=== PATIENT | female | born 1965 | race Caucasian/White ===

== ENCOUNTER 2016-05-14 14:12 | Emergency (ER) | payer BC, OTHER ==
[~2016-05-14] VITALS: Ht 172.7 cm; Wt 111.1 kg
[~2016-05-14 14:12] MED LIST: PANT20TA2 PO; SYNT175T PO
[2016-05-14 14:17] VITALS: BP 135/85; PULSE 91; RESP 18; TEMP 98.9; O2SAT 95
--- NOTE | 2016-05-14 14:22 | PD ---
HPI . Possible splinter to left palm Chief Complaint: Foreign Body Time Seen by Provider: 14:22 Travel History International Travel<30 days: No Contact w/Intl Traveler<30days: No Traveled to known affect area: No History of Present Illness HPI 51-year-old female with hypothyroidism and GERD here with complaints of a possible splinter to her left palm. Apparently a week ago she was working with some plywood and thinks she might have sustained some type of injury to her left palm where there was a splinter left in place. She does recall removing a piece of it but is now complaining of pain in the same area. She has tried poking and picking to remove the splinter without any success. She is concerned that it may become infected. She has no other specific complaints. PFSH Past Medical History ?: Not Social History Tobacco Use: No Allergies-Medications (Allergen,Severity, Reaction): Coded Allergies: No Known Allergies (Unverified , 05/14/16) Reported Meds & Prescriptions Reported Meds & Active Scripts Active Reported Pantoprazole (Pantoprazole Sodium) 20 Mg Tab 20 Mg PO BID Synthroid (Levothyroxine Sodium) 175 Mcg Tab 175 Mcg PO DAILY Review of Systems General / Constitutional: No: Fever Eyes: No: Visual changes HENT: No: Headaches Cardiovascular: No: Chest Pain or Discomfort Respiratory: No: Shortness of Breath Gastrointestinal: No: Abdominal Pain Genitourinary: No: Dysuria Musculoskeletal: Positive: Pain (left palm) Skin: No Rash Neurologic: No: Weakness Psychiatric: No: Depression Endocrine: No: Polydipsia Hematologic/Lymphatic: No: Easy Bruising Physical Exam Narrative GENERAL: AAO x 3, no acute distress, Well-nourished, well-developed patient. SKIN: Warm and dry. No visible rashes or bruising. There is a callused area to the left palm distal to the fourth digit. I do not visualize any type of splinter. I do not feel any type of form body. It is tender to touch. HEAD: Normocephalic and atraumatic. EYES: No scleral icterus. No injection or drainage. EOM intact, PERRLA ENT: No nasal drainage noted. Mucous membranes pink. Airway patent. NECK: Supple, trachea midline. No JVD. CARDIOVASCULAR: Regular rate and rhythm without murmurs, gallops, or rubs. RESPIRATORY: Breath sounds equal bilaterally. No accessory muscle use. No rhonchi or rales. GASTROINTESTINAL: Abdomen soft, non-tender, nondistended. EXTREMITIES: No cyanosis or edema. BACK: Nontender without obvious deformity. No CVA tenderness. PSYCH: AAO x 3, normal affect. Data Data Last Documented VS Vital Signs Date Time Temp Pulse Resp B/P Pulse Ox O2 Delivery O2 Flow Rate FiO2 05/14/16 14:17 98.9 91 18 135/85 95 Orders Hand, Limited (2vws) (05/14/16 14:26) MDM Medical Decision Making Medical Screen Exam Complete: Yes Emergency Medical Condition: Yes Medical Record Reviewed: Yes Differential Diagnosis left hand splinter, callus left palm, contractures Narrative Course 51-year-old female with hypothyroidism and GERD here with complaints of a possible splinter to her left palm. Apparently a week ago she was working with some [employer] and thinks she might have sustained some type of injury to her left palm where there was a splinter left in place. She does recall removing a piece of it but is now complaining of pain in the same area. She has tried poking and picking to remove the splinter without any success. She is concerned that it may become infected. She has no other specific complaints. Patient seen and examined. I have examined her and do not definitively see or feel any type of foreign body in her left palm. There is an area of callus and of course there could be something within this, but I am uncertain. I've advised an x-ray to see if somehow it can highlight some soft tissue and shed some light on this situation. I discussed with patient. We will proceed with x-ray before I perform any type of exploratory cut. I personally reviewed the x-ray and do not see any type of foreign body Final read :X-ray with no definitive foreign body identified. Discussed with patient. Advise for pain continues that she will need to follow-up with hand surgery. I advised her that I am unable to perform any type of exploratory minor procedure in the emergency department to search for a possible splinter. There is no cellulitis or issue warranting any further care. I explained that this can be a callus or scar tissue causing some discomfort due to location. Patient verbalized understanding of instructions, questions were answered, and thanked me for their care. I advised them if their condition worsens, please return to the nearest emergency room for further care. Diagnosis Primary Impression: PAIN IN LEFT HAND Referrals: Kayla Hill MD Patient Instructions: General Instructions Additional Instructions: Please follow-up with your primary care provider. If the pain in her hand persists, you may need to see a hand surgeon for further evaluation and treatment. I have provided the name of one in the area. Med/Other Pt SpecificInfo: No Change to Meds Disposition: 01 DISCHARGE HOME Condition: Stable Estela Dia May 14, 2016 14:22
--- NOTE | 2016-05-14 15:27 | RADHPO ---
EXAM DATE/TIME: 05/14/2016 14:31 [facility] COMPARISON: No previous studies available for comparison. INDICATIONS : Left hand foreign body. Splinter in hand 1 week ago. MEDICAL HISTORY : None. SURGICAL HISTORY : None. ENCOUNTER: Initial ACUITY: 1 week PAIN SCORE: 4/10 LOCATION: Left palmar surface; hand. FINDINGS: Two view examination of the left hand demonstrates no soft tissue swelling, dislocation, or fracture. The joint spaces are maintained. Bony mineralization is normal. CONCLUSION: Radiographically, no definite foreign body. No acute bony abnormality. Jona Boone MD on May 14, 2016 at 15:25 Board Certified Radiologist. This report was verified electronically.
== END 2016-05-14 16:03 | disposition home or self-care (01) ==
LOC: PHEFT 14:12
DX: M79.642 Pain in left hand (principal); E03.9 Hypothyroidism, unspecified; K21.9 Gastro-esophageal reflux disease without esophagitis
CPT/HCPCS: 73120; 99283